=== PATIENT | male | born 1985 | race Caucasian/White ===

== ENCOUNTER 2017-05-28 09:30 | Emergency (ER) | payer MEDICAID, SELFPAY ==
[2017-05-28 09:31] VITALS: BP 157/103; PULSE 105; RESP 18; TEMP 36.1; O2SAT 100; BMI 25.9
--- NOTE | 2017-05-28 09:43 | ED.VISSUMM ---
- ER Visit Summary Date of Service: 05/28/17 Chief Complaint: Left elbow injury History of Present Illness: The patient is a 31 M [id number] presents left elbow injury at work. 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 Transient paresthesia. Pain worse with movement. Took Aleve prior to arrival. History of finger and toe fractures and no surgical intervention. He is on gabapentin for back pain. No back surgeries. Denies history of gastric ulcer or kidney injury. Physical Examination: General: Alert and oriented ?3, no acute distress HEENT: Normocephalic, atraumatic. Moist mucosa membranes Neck: supple, nontender. Cardiovascular: Regular rate and rhythm, no murmurs Respiratory: Normal breath sounds, symmetric, no distress Abdomen: Soft, nontender, nondistended Extremities: no edema, pulses intact ?4. Left upper extremity: No shoulder pain. Elbow with no deformities, tender to palpation at the olecranon. He will supinate and pronate without pain. Skin intact. Neurovascular intact distally. Neuro: no focal neurological deficits. Test Results: Left elbow x-ray: Soft tissue swelling, no fracture Emergency Department Course and Treatment: Ice was placed. X-ray negative for fracture. Sanjeev wrap provided. Rice therapy discussed. Continue with anti-inflammatory. He did not want to file Worker's Comp. due to being in a temp position. He will follow-up as an outpatient. Treatment Plan: Rice therapy Disposition: Discharge Impression: Left elbow contusion This note was generated with MediaScrape dictation software. It may contain incorrect words, spelling, and punctuation that were not noted in review of the chart prior to signing ED Disposition - Plan for ED Patient: Disposition: Home or Assisted Living Chief Complaint: Upper Extremity Injury Diagnosis: Contusion of left elbow, initial encounter Instructions: ED Contusion Upper Ext Referrals: Mansoor Lockwood [Primary Care Provider] - 5-7 Days
--- NOTE | 2017-05-28 09:58 | RAD_ITS ---
STUDY: X-RAY - LEFT ELBOW REASON FOR EXAM: Male, 31 years old. Pain following injury. TECHNIQUE: 3 view(s) of the elbow. COMPARISON: None. FINDINGS: Normal visualized humerus, radius and ulna. Normal radiocapitellar and ulnotrochlear articulations. Soft tissue swelling overlying the posterior aspect of the elbow. RAD/Elbow min 3 Views IMPRESSION: Soft tissue swelling overlying the posterior aspect of the elbow. Electronically Signed: Eddie Banks MD at 10:15 EST Tel [phone], Service support ,
[2017-05-28 10:37] VITALS: BP 137/88; PULSE 93; RESP 18; O2SAT 97
== END 2017-05-28 10:38 | disposition home or self-care (01) ==
PROVIDERS: Emergency Provider Emergency Medicine; Family Provider Physician Assistant; PCP Physician Assistant
DX: S50.02XA Contusion of left elbow, initial encounter (principal); W22.09XA Striking against other stationary object, initial encounter; Y93.9 Activity, unspecified; Y92.89 Other specified places as the place of occurrence of the external cause; Y99.0 Civilian activity done for income or pay; Z72.0 Tobacco use
CPT/HCPCS: 73080; 99282

== ENCOUNTER 2019-01-30 21:55 | Emergency (ER) | payer SELFPAY ==
[2019-01-30 21:56] VITALS: BP 133/101; PULSE 90; RESP 16; TEMP 36.7; O2SAT 98; BMI 25.7
[2019-01-30 22:30] VITALS: BP 144/89
--- NOTE | 2019-01-30 22:45 | RAD_ITS ---
STUDY: X-RAY - LEFT HAND, ATTENTION MIDDLE FINGER REASON FOR EXAM: Male, 33 years old. LACERATION FROM A KNIFE INJURY. TECHNIQUE: 3 view(s) of the finger were obtained. COMPARISON: None. FINDINGS: No visible fracture. No osseous destruction. Alignment anatomic. No significant degenerative changes. Soft tissues unremarkable. RAD/Finger(s) Min 2 Views IMPRESSION: No acute osseous abnormality. Electronically Signed: Robinson Dougherty, at 23:07 EDT Tel , Service support ,
--- NOTE | 2019-01-30 23:00 | ED.DCSUM_ITS ---
- ER Visit Summary Date of Service: 01/30/19 Chief Complaint: Laceration History of Present Illness: The patient is a 33 M who goes to [facility]. Reports just prior to coming emergency department he was cutting fudge with his pocket knife and cut his left middle finger. Reports he has a burning pain Zeta 10 hours and 4-10 currently. Is worsened by movement and relieved by rest. He denies any paresthesias distally. He is right-hand dominant. His tetanus is up-to-date. Physical Examination: Vitals: Stable. Afebrile. General: Well-nourished and well-developed. Head: Normocephalic atraumatic. Neck: Supple, no lymphadenopathy. No JVD. Nontender. Cardiovascular: Regular rate and rhythm. No murmurs. Respiratory: No respiratory distress. Clear to auscultation bilaterally. Abdominal: Soft, nontender, nondistended, normal bowel sounds. No guarding, rebound, or peritoneal signs. Back: Nontender. Extremities: Lateral side of the PIP joint of his left middle finger there is a 1 cm laceration. There is no active bleeding. He is resting intact distally Skin: Normal color, no rash. Neurologic: Alert and oriented ?3. Cranial nerves II through XII are intact. Normal strength and sensation. Psych: Normal affect. Test Results: Clinical Impression(s) from Imaging Studies Finger X-Ray 01/30/19 22:45 IMPRESSION: No acute osseous abnormality. Electronically Signed: Robinson Dougherty, at 23:07 EDT Tel , Service support , Emergency Department Course and Treatment: I discussed the patient treatment options. He has decided to let this heal by secondary intention. He refused pain medications. Patient had his wound cleansed and a dressing was placed. Treatment Plan: Patient be discharged instructions to follow-up with his primary care physician in 1 week if not improving. Return to the emergency department for any worsening symptoms. Disposition: To home in improved and stable condition. Impression: 1. Laceration left middle finger, 1 cm, not repaired. This note was generated with Atrecaation software. It may contain incorrect words, spelling, and punctuation that were not noted in review of the chart prior to signing ED Disposition - Plan for ED Patient: Disposition: Home or Assisted Living Instructions: LACERATION, Small/superficial, Not sutured Referrals: Mansoor Lockwood PA [Primary Care Provider] - 3-5 Days
[2019-01-30 23:18] VITALS: BP 144/89
== END 2019-01-30 23:18 | disposition home or self-care (01) ==
PROVIDERS: Emergency Provider Emergency Medicine; Family Provider Physician Assistant; PCP Physician Assistant
DX: S61.213A Laceration without foreign body of left middle finger without damage to nail, initial encounter (principal); W26.0XXA Contact with knife, initial encounter; Y93.9 Activity, unspecified; Y92.9 Unspecified place or not applicable; Y99.9 Unspecified external cause status; J45.909 Unspecified asthma, uncomplicated; Z72.0 Tobacco use
CPT/HCPCS: 73140; 99282

== ENCOUNTER → 2019-05-09 09:27 | Outpatient (CLI) | payer MEDICAID, SELFPAY ==
[2019-05-09 09:20] VITALS: BMI 25.7
--- NOTE | 2019-05-09 09:28 | RAD_ITS ---
STUDY: X-RAY - RIGHT KNEE REASON FOR EXAM: Male, 33 years old. KNEE PAIN, NO TRAUMA TECHNIQUE: 4 view(s) of the knee. COMPARISON: None. FINDINGS: Normal visualized distal femur. Normal visualized proximal tibia and fibula. Normal proximal tibiofibular articulation. Normal medial femorotibial compartment. Normal lateral femorotibial compartment. Normal patellofemoral articulation. The soft tissue structures are unremarkable. RAD/Knee 4 or More Views IMPRESSION: Normal x-ray examination of the knee. Electronically Signed: Jerrod Bautista MD at 15:11 EST Tel , Service support ,
--- NOTE | 2019-05-09 09:28 | RAD_ITS ---
STUDY: X-RAY - LEFT ELBOW REASON FOR EXAM: Male, 33 years old. ELBOW PAIN, NO TRAUMA TECHNIQUE: 3 view(s) of the elbow. COMPARISON: None. FINDINGS: Normal visualized humerus, radius and ulna. Normal radiocapitellar and ulnotrochlear articulations. The soft tissue structures are unremarkable. RAD/Elbow min 3 Views IMPRESSION: Normal x-ray examination of the elbow. Electronically Signed: Jerrod Bautista MD at 15:12 EST Tel , Service support ,
== END ==
PROVIDERS: PCP Physician Assistant; Referring Provider Orthopaedic Surgery; Visit Provider Orthopaedic Surgery
DX: M25.561 Pain in right knee (principal); M25.522 Pain in left elbow
CPT/HCPCS: 73080; 73564

== ENCOUNTER 2019-05-13 15:44 | Outpatient (RCR) | payer MEDICAID, SELFPAY ==
[2019-05-09 09:20] VITALS: BMI 25.7
--- NOTE | 2019-05-13 16:41 | HP.PTEVAL_ITS ---
Patient's Visit Information SEB BAIN is a 33 year old M referred to Physical Therapy by Channing Olmedo DO with a diagnosis of R knee pain, LBP. Date of Evaluation: 05/13/19 Physical Therapist: ZACH MonkT, OCS, CSCS - Visit Plan Frequency: 2x /Week Duration: 4-6 Weeks Plan: 2x/week for 4-6 weeks for aquatic therapy per order for: 1. quad, hip flexor adn HS stretching progressing to HEP. 2. hip and LE strengthening, postural focus. 3. LB ROM emphasizing ext and stretching progressing to I. After water therapy, exit strategy will be I in water or progress to land therapy for gym/HEP. - Subjective Findings: R knee hurts worse lately. Surgery 2 yrs ago for scope whcih helped for a while but pain started returning. ots of steps to do at aparmtment. Pain is anteriorly nearly daily. Worse with walking adn comfortable at rest. Steps are worse. L knee is fine. Sleep is interrupted due to throbbing pain at times. Not employed. Spends day lying around and going to doctors appointments. Basic ADLs are getting done, it just hurts. Back pain all the time 4/10 in Middle LB. Worse with bending forward. activities OK, worse in standing. - Pain R anterior knee Pain Intensity (Out of 10): 4 Pain Intensity Range: 0, 8 Comment: carrying gorceries - Objective R antalgia with gait but I. Trasnfers I. Posture is sacral sitting and stiffness present in lower lumbar and thpracic area into flexion. PA tenderness in upper lumbar spine. Tenderness to touch in medial knee pes area. HS -50 90/90 test with obvious tightness in hip flexor also as opposite knee rises off table. quads mod tight. L/S AROM multi segmental is mod limited in ext adn min in flexion. normal SB. Knee aROM B WFL without pain. Hipsarevery tight but ROM is OK except hip ext limited to neutral, ext rotation to 45, IR to 10 and flexion to 100 B. Ankle AROM WFL and strength ankles 4- and knees 4- but painful R knee ext, hip strength 4- abd and ext adn 4 flexion B. knee scour, vlagus and varus, anterior drawer adn post sag all negative B today. - slump and SLR test. Pt is very tall. B pes planus evident and may need addressed after pool therapy but already wears doctor joe - Goals Goal 1:: Short term goals: Pain in LB and knee reduced by 50% to 2/10 at worst and manageable. Goal Time Frame: 4-6 Weeks Goal 2:: LEFS improved by 10% Goal Time Frame: 4-6 Weeks Goal 3:: senior living goals: I approp HEP to minimize futre probems with knee pain and back Goal Time Frame: 4-6 Weeks Goal 4:: Sleep without waking at night due to knee pain. Goal Time Frame: 4-6 Weeks Goal 5:: Walk community distances without increased knee pain Goal Time Frame: 4-6 Weeks - Rehabilitation Potential Physical Therapy Diagnosis: Knee adn LBP, degenrative adn poorly managed. Rehabilitation Potential: Fair - Anticipated Interventions Patient/Client Instruction: Educate patient on: Condition, Plan of Care For the Purpose of:: To decrease pain, To increase ROM, To improve muscle performance and motor function, To increase tolerance to activity/condition/position, To improve ability of physical actions for home/community/work/leisure, To improve gait and locomotor functions Therapeutic Exercise to Include: Strength training, Postural training, Flexibilty training, Gait and locomotor training, In an aquatic setting, Passive ROM, Active ROM For the Purpose of:: To decrease pain, To increase ROM, To improve muscle performance and motor function, To increase tolerance to activity/condition/position Thank you for the opportunity to evaluate your patient. For Medicare and Medicare HMO plans, please review the plan of care and approve it. It will need to be FAXED BACK to us at [phone] for Medicare purposes. For Medicare only, by signing this I certify the plan of care. Please let me know if there are questions or concerns regarding this plan of care. Physician Signature: Date:
--- NOTE | 2019-06-23 14:39 | HP.PTDCNRP_ITS ---
HP - Discharge Summary (1) - Patient Information SEB BAIN was seen in my office for initial evaluation on 05/13/19. The following Plan of Care was established for this patient: Initial Frequency: 2x /Week Initial Duration: 4-6 Weeks - Anticipated Interventions Patient/Client Instruction: Educate patient on: Condition, Plan of Care For the Purpose of:: To decrease pain, To increase ROM, To improve muscle perfo rmance and motor function, To increase tolerance to activity/condition/position, To improve ability of physical actions for home/community/work/leisure, To improve gait and locomotor functions Therapeutic Exercise to Include: Strength training, Postural training, Flexibilty training, Gait and locomotor training, In an aquatic setting, Passive ROM, Active ROM For the Purpose of:: To decrease pain, To increase ROM, To improve muscle performance and motor function, To increase tolerance to activity/condition/position This patient was last seen in our office 05/13/19. Pertinent comments regarding their Physical therapy will appear below: Pt seen for evaluation and POC established. PT did not show up any of his scheduled appointments. At this point I will discontinue due to nonattendance. At this point I will be discontinuing this patient from physical therapy. I would be happy to see this patient again in the future if found appropriate by the physician. Thank you! Paulino Stallworth, DPT, OCS, CSCS
== END 2019-05-13 19:00 | disposition home or self-care (01) ==
LOC: PT 15:44
PROVIDERS: PCP Student in an Organized Health Care Education/Training Program; Referring Provider Student in an Organized Health Care Education/Training Program; Visit Provider Student in an Organized Health Care Education/Training Program
DX: M54.5 Low back pain (principal); M25.561 Pain in right knee
CPT/HCPCS: 97162

== ENCOUNTER → 2019-06-12 15:21 | Outpatient (CLI) | payer MEDICAID, SELFPAY ==
[2019-06-12 14:55] VITALS: BMI 25.7
[2019-06-12 16:07] LABS: Absolute Lymphocyte Count 1.83 X10^3/uL (0.83-4.51); Absolute Neutrophil Count 3.8 X10^3/uL (2.0-7.7); Basophil# 0.03 X10^3/uL; Basophil% 0.5 % (0-1); Eosinophils% 3.1 % (0-5); Hematocrit 50.6 % (40-54); Hemoglobin 17.3 g/dL (13.0-16.5); Lymphocyte # 1.83 X10^3/ul (4.0); Lymphocyte % 28.8 % (19-41); Mean Corp Hgb Conc 34.2 g/dL (32-36); Mean Corpuscular Volume 87.7 fL (80-94); Mean Platelet Vol. 8.7 fl (6.2-12.0); Monocyte# 0.45 X10^3/uL; Monocyte% 7.1 % (0-10); NRBC Flagged by Analyzer 0 % (0-5); Neutrophil # 3.83 X10^3/uL (2.7-7.7); Neutrophil % 60.2 % (47-70); Platelet Count 223 K/mm3 (150-450); RBC Distribution Width CV 12.9 % (11.6-14.6); RBC Distribution Width SD 41.3 fl (35.1-43.9); Red Blood Count 5.77 M/mm3 (4.6-6.2); White Blood Count 6.4 K/mm3 (4.4-11.0)
[2019-06-12 19:26] LABS: BUN 11 mg/dL (7-18); Creatinine, Serum 0.95 mg/dL (0.70-1.30); Glucose 93 mg/dL (74-106)
[2019-06-12 19:27] LABS: ALB/GLOB Ratio 1.2 RATIO (0.9-2.4); AST(SGOT) 18 U/L (15-37); Alanine Aminotransfer ALT/SGPT 42 U/L (16-61); Albumin, Serum 4.5 g/dL (3.2-5.0); Alkaline Phosphatase 132 U/L (45-117); Anion Gap 5 (5-15); Calcium,Total 8.8 mg/dL (8.5-10.1); Chloride 107 mmol/L (98-107); Free T3 3.2 pg/mL (2.18-3.98); Globulin 3.7 g/dL (2.2-4.2); Protein, Total 8.2 g/dL (6.4-8.2); Sodium Level 139 mmol/L (136-145); Thyroid Stim Hormone (TSH) 1.42 uIU/mL (0.358-3.74)
[2019-06-12 19:28] LABS: PSA,Total - Annual Screen 0.63 ng/mL (0.00-4.00); T4 Free Direct 1.19 ng/dL (0.76-1.46)
[2019-06-12 19:43] LABS: BUN/Creat Ratio 11.5 RATIO (10-20); EST Glomerular Filtration Rate 97 mL/min (>60); Est Glom Filt Rate - Afr Amer 118 mL/min (>60); Follicle Stimulating Hormone 38.5 mIU/mL; Luteinizing Hormone 20.6 mIU/mL; Prolactin 3.9 ng/mL
[2019-06-16 16:08] LABS: Testosterone, % Free 1.99 % (1.50-4.20); Testosterone, Free 4.38 ng/dL (5.00-21.00)
[2019-06-16 18:06] LABS: Adrenocorticotropic Hormone 29.6 pg/mL (7.2-63.3); Insulin Like Growth Factor 227 ng/mL (88-246); Testosterone, Total 220 ng/dL (264-916)
== END ==
PROVIDERS: PCP Student in an Organized Health Care Education/Training Program; Referring Provider Internal Medicine Endocrinology, Diabetes & Metabolism; Visit Provider Internal Medicine Endocrinology, Diabetes & Metabolism
DX: E23.0 Hypopituitarism (principal); E23.7 Disorder of pituitary gland, unspecified; Q98.4 Klinefelter syndrome, unspecified
CPT/HCPCS: 36415; 80053; 82024; 82533; 83001; 83002; 84146; 84153; 84305; 84402; 84403; 84439; 84443; 84481; 85025; G0103

== ENCOUNTER → 2019-06-23 11:28 | Outpatient (CLI) | payer MEDICAID, SELFPAY ==
[2019-06-19 14:05] VITALS: BMI 26.4
--- NOTE | 2019-06-23 11:28 | US_ITS ---
STUDY: RENAL ULTRASOUND - COMPLETE REASON FOR EXAM: Male, 33 years old. EVALUATE FOR POSSIBLE RENAL MASS/CYST TECHNIQUE: Ultrasound evaluation of the kidneys was performed with real-time and static sullivan-scale imaging. COMPARISON: November 01, 2012. FINDINGS: Right kidney: Measures 11.3 cm. Normal contour. Renal cortical thickness appears normal. No cysts. No masses, stones, or hydronephrosis identified. Left kidney: Measures 12.4 cm. Normal contour. Renal cortical thickness appears normal. No cysts. No masses, stones, or hydronephrosis identified. Bladder: Decompressed and not evaluated US/Kidney and Bladder IMPRESSION: Renal ultrasound is within normal limits. No evidence for cyst or mass demonstrated. Bladder not evaluated. Electronically Signed: Carlos Jarvis, at 12:28 EDT Tel , Service support ,
--- NOTE | 2019-06-23 11:28 | US_ITS ---
STUDY: ABDOMINAL ULTRASOUND - LEFT UPPER QUADRANT REASON FOR EXAM: Male, 33 years old. CHECK SIZE OF SPLEEN TECHNIQUE: Transabdominal ultrasound was performed with real-time and static beach scale imaging. TECHNICAL QUALITY: Adequate. COMPARISON: CT scan November 01, 2018 FINDINGS: Spleen: Normal size of the spleen. The spleen measures 12.9 x 9.9 x 4.5 cm. On prior study November 01, 2018 and measured approximately 14.7 x 5.7 x 12.5 cm Left Kidney: Normal size of the left kidney. The left kidney measures 8.4 x 3.7 cm. Normal renal cortex. The left cortex measures 1.3 cm. There is no demonstrated renal mass or cyst. There is no left hydronephrosis. US/Spleen IMPRESSION: The spleen measures 12.9 x 9.9 x 4.5 cm. This is considered mildly enlarged. Allowing for differences in measuring technique between the CT November 01, 2012 and today''s study in May have reduced in size. Electronically Signed: Anastasia Ferrera MD at 13:54 EDT Tel , Service support ,
== END ==
PROVIDERS: PCP Student in an Organized Health Care Education/Training Program; Referring Provider Internal Medicine Hematology & Oncology; Visit Provider Internal Medicine Hematology & Oncology
DX: D75.1 Secondary polycythemia (principal); Q98.4 Klinefelter syndrome, unspecified
CPT/HCPCS: 76705; 76770

== ENCOUNTER → 2019-08-25 13:47 | Outpatient (CLI) | payer MEDICAID, SELFPAY ==
[2019-06-25 14:52] VITALS: BMI 25.7
[2019-08-25 14:33] LABS: Hematocrit 46.4 % (40-54); Hemoglobin 15.4 g/dL (13.0-16.5)
== END ==
PROVIDERS: Referring Provider Internal Medicine Endocrinology, Diabetes & Metabolism; Visit Provider Internal Medicine Endocrinology, Diabetes & Metabolism
DX: D75.1 Secondary polycythemia (principal)
CPT/HCPCS: 36415; 85014; 85018

== ENCOUNTER → 2020-08-26 14:49 | Outpatient (CLI) | payer MEDICAID, SELFPAY ==
[2020-08-26 14:36] VITALS: BMI 25.7
[2020-08-26 16:49] LABS: Absolute Neutrophil Count 4.4 X10^3/uL (2.0-7.7); Basophil# 0.02 X10^3/uL; Basophil% 0.3 % (0-1); Eosinophil# 0.17 X10^3/uL; Eosinophils% 2.5 % (0-5); Hematocrit 42.7 % (40-54); Lymphocyte % 27.7 % (19-41); Mean Corp Hgb Conc 32.8 g/dL (32-36); Mean Corpuscular Hgb 29.3 pg (27.0-32.0); Mean Corpuscular Volume 89.3 fL (80-94); Mean Platelet Vol. 9.2 fl (6.2-12.0); Monocyte# 0.37 X10^3/uL; Monocyte% 5.4 % (0-10); NRBC Flagged by Analyzer 0 % (0-5); Neutrophil # 4.37 X10^3/uL (2.7-7.7); Neutrophil % 63.8 % (47-70); Platelet Count 235 K/mm3 (150-450); RBC Distribution Width CV 13.2 % (11.6-14.6); Red Blood Count 4.78 M/mm3 (4.6-6.2); White Blood Count 6.9 K/mm3 (4.4-11.0)
[2020-08-26 17:08] LABS: ALB/GLOB Ratio 1.4 RATIO (0.9-2.4); AST(SGOT) 24 U/L (15-37); Alanine Aminotransfer ALT/SGPT 33 U/L (16-61); Albumin, Serum 4.3 g/dL (3.2-5.0); Alkaline Phosphatase 105 U/L (45-117); Anion Gap 8 (5-15); BUN 17 mg/dL (7-18); BUN/Creat Ratio 16.8 RATIO (10-20); Calcium,Total 8.9 mg/dL (8.5-10.1); Chloride 104 mmol/L (98-107); Cholesterol 226 mg/dL (200); Creatinine, Serum 1.01 mg/dL (0.70-1.30); EST Glomerular Filtration Rate 90 mL/min (>60); Est Glom Filt Rate - Afr Amer 109 mL/min (>60); Globulin 3.1 g/dL (2.2-4.2); Glucose 114 mg/dL (74-106); High Density Lipoprotein 47 mg/dL; Potassium 3.6 mmol/L (3.5-5.1); Protein, Total 7.4 g/dL (6.4-8.2); Sodium Level 140 mmol/L (136-145); T4 Free Direct 0.98 ng/dL (0.76-1.46); Thyroid Stim Hormone (TSH) 0.69 uIU/mL (0.358-3.74); Triglycerides 156 mg/dL; Very Low Density Lipoprotein 31 mg/dL (5-40)
[2020-08-31 12:08] LABS: Testosterone, Free 2.89 ng/dL (5.00-21.00)
[2020-08-31 13:14] LABS: Testosterone, % Free 2.22 % (1.50-4.20); Testosterone, Total 130 ng/dL (264-916)
== END ==
PROVIDERS: Referring Provider Internal Medicine Endocrinology, Diabetes & Metabolism; Visit Provider Internal Medicine Endocrinology, Diabetes & Metabolism
DX: Q98.4 Klinefelter syndrome, unspecified (principal); D75.1 Secondary polycythemia
CPT/HCPCS: 36415; 80053; 80061; 84402; 84403; 84439; 84443; 85025

== ENCOUNTER 2021-05-03 16:05 | Outpatient (CLI) | payer MEDICAID, SELFPAY ==
[2021-05-03 16:47] LABS: Absolute Lymphocyte Count 1.59 X10^3/uL (0.83-4.51); Absolute Neutrophil Count 3.9 X10^3/uL (2.0-7.7); Basophil# 0.02 X10^3/uL; Basophil% 0.3 % (0-1); Eosinophil# 0.19 X10^3/uL; Eosinophils% 3.1 % (0-5); Hematocrit 45.6 % (40-54); Lymphocyte # 1.59 X10^3/ul (0.83-4.51); Lymphocyte % 26.2 % (19-41); Mean Corp Hgb Conc 32.9 g/dL (32-36); Mean Corpuscular Hgb 29.8 pg (27.0-32.0); Mean Corpuscular Volume 90.5 fL (80-94); Mean Platelet Vol. 9.1 fl (6.2-12.0); Monocyte% 6.6 % (0-10); NRBC Flagged by Analyzer 0 % (0-5); Neutrophil # 3.86 X10^3/uL (2.7-7.7); Neutrophil % 63.5 % (47-70); Platelet Count 240 K/mm3 (150-450); RBC Distribution Width CV 13.7 % (11.6-14.6); RBC Distribution Width SD 45.3 fl (35.1-43.9); Red Blood Count 5.04 M/mm3 (4.6-6.2); White Blood Count 6.1 K/mm3 (4.4-11.0)
[2021-05-12 11:08] LABS: Testosterone, Free 5.13 ng/dL (5.00-21.00)
[2021-05-12 14:36] LABS: Testosterone, % Free 2.24 % (1.50-4.20); Testosterone, Total 229 ng/dL (264-916)
== END 2021-05-03 23:59 | disposition short-term general hospital (02) ==
LOC: BIMLAB 16:06
PROVIDERS: Referring Provider Internal Medicine Endocrinology, Diabetes & Metabolism; Visit Provider Internal Medicine Endocrinology, Diabetes & Metabolism
DX: D75.1 Secondary polycythemia (principal); E29.1 Testicular hypofunction
CPT/HCPCS: 36415; 84402; 84403; 85025

== ENCOUNTER 2021-07-26 06:28 | Outpatient (CLI) | payer MEDICAID, SELFPAY ==
--- NOTE | 2021-07-26 06:28 | MRI_ITS ---
STUDY: MRI RIGHT KNEE REASON FOR EXAM: Anterior right knee pain for 6 months, no specific injury, prior surgery. TECHNIQUE: Standardized fat and water weighted pulse sequences were obtained in all 3 orthogonal planes. COMPARISON: Radiographs 05/09/2019. FINDINGS: Normal medial meniscus. Normal hyaline cartilage of the medial femorotibial compartment. There is very mild subchondral bone edema of the medial tibial plateau (T2 coronal images 15, 16), a stress phenomenon. Normal medial collateral ligamentous complex (MCL). Normal distal semimembranosus, gracilis and semitendinosus tendons. Normal lateral meniscus. Normal hyaline cartilage of the lateral femorotibial compartment. Normal lateral femoral condyle and tibial plateau. Normal proximal tibiofibular articulation. Normal lateral collateral (fibular) ligament. Normal popliteus tendon. Normal biceps femoris tendon. Normal anterior cruciate ligament (ACL). Normal posterior cruciate ligament (PCL). Normal congruent patellofemoral articulation. There is an osteochondral lesion of the medial patellar facet (proton-density sagittal images 25, 26) measuring approximately 0.8 cm in transverse and length dimensions with overlying chondral tear with delamination (T2 sagittal image 15; T2 axial images 7, 8) and mild bone edema of the patella. Normal medial and lateral patellar retinaculum. Normal visualized quadriceps tendon. Normal patellar tendon. Normal Hoffa''s fat pad. There is a very small joint effusion. The soft tissues are unremarkable. The otherwise visualized osseous structures are unremarkable. MRI/Lower Ext Joint Only (Routine) IMPRESSION: Osteochondral lesion of the medial patellar facet with overlying delaminating chondral tear. Very mild subchondral bone edema of the medial tibial plateau, a stress phenomenon. Very small joint effusion. Electronically Signed: Sebastian Castano MD at 8:46 EDT ,
== END 2021-07-26 23:59 | disposition home or self-care (01) ==
LOC: MRI 06:28
DX: M23.91 Unspecified internal derangement of right knee (principal); Z98.890 Other specified postprocedural states
CPT/HCPCS: 73721

== ENCOUNTER 2021-08-09 20:02 | Emergency (ER) | payer MEDICAID, SELFPAY ==
[2021-08-09 20:03] VITALS: BP 130/76; PULSE 68; RESP 15; TEMP 36.1; O2SAT 98; BMI 25.9
--- NOTE | 2021-08-09 20:35 | ED.VIS.GI ---
HPI HPI - GI History of Present Illness Chief Complaint: Other, Pain/Inj Detail of Chief Complaint: Hemorrhoid. Informant: patient Abdominal Pain/Flank Pain Onset: Days Context: Gradual Onset Timing: Continuous Quality: Sharp Current Severity: Mild Maximum Severity: Mild Nausea/Vomiting/Emesis GI Symptom: Negative for Nausea and Vomiting Diarrhea/Melena/Hematochezia GI Symptom: Negative for Diarrhea, Melena and Hematochezia Associated Symptoms Associated Symptoms: Negative for Dysuria, Frequency and Hematuria Narrative Narrative: 36-year-old male states he has had a hemorrhoid for a week. He has been using hemorrhoid cream for 3 days states it has not improved. He denies any bleeding. Denies any other complaints. Prior similar symptoms: Yes Recent Illness/Hospitalization: No PFSH PFSH Medical History Klinefelter syndrome Male hypogonadism Yeast infection of the skin Home Medications cyclobenzaprine 5 mg tablet 5 mg PO DAILY 06/12/19 [History Last Taken Unknown] fluticasone propionate 50 mcg/actuation nasal spray,suspension 2 spray INTRANASAL DAILY #36.4 ml 12/09/19 [Rx Last Taken Unknown] syringe with needle, safety 3 mL 22 gauge x 1 04/17 #10 ea 01/31/21 [Rx Last Taken Unknown] nystatin 100,000 unit/gram topical powder 1 applic TOPICAL DAILY #30 g 05/03/21 [Rx Last Taken Unknown] testosterone cypionate 200 mg/mL intramuscular oil 200 mg IM Q3W #2 ml 05/12/21 [Rx Last Taken Unknown] Allergy/AdvReac Type Severity Reaction Status Date / Time shellfish derived Allergy Severe Unknown Verified 08/09/21 20:07 ciprofloxacin [From Cipro] AdvReac Severe Rash Verified 08/09/21 20:07 ciprofloxacin HCl AdvReac Severe Rash Verified 08/09/21 20:07 [From Cipro] sulfamethoxazole AdvReac Intermediate Itching Verified 08/09/21 20:07 [From Bactrim] trimethoprim [From Bactrim] AdvReac Intermediate Itching Verified 08/09/21 20:07 Family History Other No pertinent family history Surgical History History of right knee surgery Social History Smoking Status: Current every day smoker alcohol intake: never ROS ROS ED ROS Narrative Hemorrhoid pain. Review of Systems ROS Unobtainable: Denies due to encephalopathy Constitutional Constitutional ED: Denies fever(s) ENT ENT ED: Denies ear pain Cardiovascular Cardiovascular: Denies chest pain Respiratory/Chest Respiratory/Chest: Denies dyspnea Gastrointestinal Gastrointestinal: Denies abdominal pain, constipation, melena, nausea or vomiting Genitourinary Genitourinary ED: Denies dysuria Musculoskeletal Musculoskeletal: Denies myalgias Integumentary Denies rash Neurologic Neurologic: Denies headache(s) Psychiatric Psychiatric: Denies depression Endocrine Endocrinology: Denies polyuria Hematologic/Lymphatic Hematologic/Lymphatic: Denies easy bruising Allergic/Immunologic Allergic/Immunologic ED: Denies urticaria EXAM Physical Exam Narrative Exam Narrative: 35-year-old male. Vital signs stable afebrile. Patient 6 foot 9. Exam unremarkable except at about 12:00 he has an external hemorrhoid. Mildly tender. Not thrombosed. No bleeding. Otherwise exam unremarkable. Const Vital Signs: 08/09/21 20:03 Temperature 96.9 F L Temperature Source Temporal Pulse Rate 68 Respiratory Rate 15 Blood Pressure 130/76 H Blood Pressure Mean 94 Pulse Ox 98 Oxygen Delivery Method Room Air Positive well nourished and well developed; Negative for obese, cachectic, contractures or unkempt General Appearance ED: well developed and NAD; Negative for unkempt, cachectic, contractures or pallor Nutritional Appearance: Negative for cachectic or obese HEENT Reports moist mucous membranes normocephalic and atraumatic; Negative for trauma or tenderness Eyes PERRL and EOMs intact bilaterally General Eye ED: Negative for pale conjunctiva or scleral icterus Neck no lymphadenopathy, supple and no JVD General: Negative for tenderness Resp normal respiratory effort and clear to auscultation bilaterally Auscultation: Negative for rales, rhonchi or wheezes Cardio regular rate, regular rhythm, S1 normal heart sound, S2 normal heart sound and no murmurs GI non-tender, non-distended and no masses GI Narrative: External hemorrhoid at about midnight. Not thrombosed. No bleeding. Auscultation: normoactive bowel sounds Palpation: soft; Negative for tender, guarding or rigid Back/Spine no CVA tenderness Extremity full ROM General Extremety ED: Negative for edema or tenderness General Extremity: Negative for edema Neuro Sensorium / Orientation: alert, oriented to person, oriented to place and oriented to time Motor Exam: strength 5/5 throughout Psych mental status grossly normal and thought process normal Appearance: Negative for unkempt Mood & Affect: Negative for depressed or tearful Skin no wounds General Skin Exam: Negative for jaundice or pallor Lesions: no lesions Rashes: no rashes MDM MDM MDM Narrative Medical decision making narrative: 35-year-old male with an external hemorrhoid. Is not thrombosed. Hemorrhoid cream. Warm soaks. Follow-up with surgery if not improving. Discharge Plan Triage Chief Complaint: Other, Pain/Inj ED Provider: Ulysses Blue Dx/Rx/DC Orders Clinical Impression: External hemorrhoid Instructions: ED Hemorrhoids Prescriptions: No Action cyclobenzaprine 5 mg tablet 5 mg PO DAILY RF: 0 fluticasone propionate [Flonase Allergy Relief] 50 mcg/actuation spray,suspension 2 spray INTRANASAL DAILY Qty: 36.4 RF: 3 nystatin 100,000 unit/gram powder 1 applic topical DAILY Qty: 30 RF: 1 (DME) Easy Touch SheathLock Syrg-Ndl 3 mL 22 gauge x 1 1/2 syringe See Rx Instructions .ROUTE .MEDSUPPLY Qty: 10 RF: 1 testosterone cypionate [Depo-Testosterone] 200 mg/mL oil 200 mg IM Q3W Qty: 2 RF: 5 Primary Care Provider: Care Physician,No Primary Referrals: Jose Laws MD [STAFF PHYSICIAN] - 10-14 Days if not better Care Physician,No Primary [Primary Care Provider] - Activity Restrictions/Additional Instructions: Continue hemorrhoid cream such as Preparation H 2-3 times a day for the next 2 weeks. If not improving follow-up with general surgery to consider having it surgically removed. Also warm baths 2 times a day 20 to 30 minutes each time. Motrin and/or Tylenol for pain. Disposition Disposition: Home, Self Care
== END 2021-08-09 20:51 | disposition home or self-care (01) ==
PROVIDERS: Emergency Provider Emergency Medicine; Visit Provider Emergency Medicine
DX: K64.4 Residual hemorrhoidal skin tags (principal); F17.200 Nicotine dependence, unspecified, uncomplicated; Z79.899 Other long term (current) drug therapy
CPT/HCPCS: 99282

== ENCOUNTER → 2021-08-13 | Outpatient (CLI) | payer MEDICAID, SELFPAY ==
--- NOTE | 2021-08-13 07:30 | MRI_ITS ---
STUDY: MRI LUMBAR SPINE WITHOUT CONTRAST REASON FOR EXAM: Male, 36 years old. Lower back pain for few years. TECHNIQUE: Standardized fat and water weighted pulse sequences were obtained in the sagittal and axial planes. COMPARISON: Lumbar spine radiographs for 08/03/2021. CT abdomen and pelvis without contrast 11/01/2012. FINDINGS: T12-L1: (Sagittal only). Normal endplates. Normal disc height, hydration and morphology. No ventral extradural defect. Normal central canal and bilateral intervertebral neural foramina. Normal lumbar lordosis. There is no substantial scoliosis. Normal conus medullaris that terminates at the T12-L1 disc space level. L1-2: Normal endplates. Normal disc height, hydration and morphology. Normal bilateral facet joints. Normal central canal and bilateral lateral recesses. Normal bilateral intervertebral neural foramina. L2-3: Normal endplates. Normal disc height, hydration and morphology. Normal bilateral facet joints. Normal central canal and bilateral lateral recesses. Normal bilateral intervertebral neural foramina. L3-4: Normal endplates. Normal disc height, hydration and morphology. Normal bilateral facet joints. Normal central canal and bilateral lateral recesses. Normal bilateral intervertebral neural foramina. L4-5: Normal endplates. Mild disc space height narrowing is unchanged. Small linear T2 FLAIR hyperintensity underneath the posterior annulus is small annular fissure. Normal facet joints. Normal central canal and bilateral lateral recesses. Normal bilateral intervertebral neural foramina. L5-S1: Normal endplates. Minimal disc space height narrowing. Small round T2 hyperintensity underneath the posterior annulus may represent tiny annular fissure. No ventral extradural defect due to presence of prominent ventral epidural fat. Normal facet joints. Normal central canal and bilateral lateral recesses. Normal bilateral intervertebral neural foramina. Normal visualized sacral ala. Normal visualized paraspinous soft tissue structures. MRI/Spine Lumbar (Routine) IMPRESSION: 1. No MRI evidence of lumbar extruded disc fragment, spinal stenosis or nerve root displacement. 2. Minimal L4-L5 disc space height narrowing is unchanged but there is a small linear T2 STIR hyperintensity underneath the posterior annulus suggestive of small annular fissure. 3. Small round T2 STIR hyperintensity focus underneath the L5-S1 posterior annulus may represent a tiny annular fissure. Electronically Signed: Chaparro Hou MD at 18:06 EDT ,
== END | disposition home or self-care (01) ==
LOC: MRI 07:18
PROVIDERS: Visit Provider Orthopaedic Surgery
DX: M47.816 Spondylosis without myelopathy or radiculopathy, lumbar region (principal)
CPT/HCPCS: 72148

== ENCOUNTER → 2021-10-10 | Outpatient (CLI) | payer MEDICAID, SELFPAY ==
--- NOTE | 2021-10-10 15:01 | VDLE_ITS ---
Reason For Study: Calf pain RIGHT GSV is normal. CFV is compressible, spontaneous, phasic, competent and demonstrates normal augmentation. FV is compressible, spontaneous, phasic, competent and demonstrates normal augmentation. POP V is compressible, spontaneous, phasic, competent and demonstrates normal augmentation. T/P Trunk is compressible. PTV is compressible. RT PerV is compressible. Procedure This is a venous duplex using B-mode, color flow and spectral Doppler. Exam performed in department. A preliminary report was called and/or faxed to [facility]. VL/Venous Duplex US, Unilateral Interpretation Summary There is no evidence of right lower extremity deep vein thrombosis. Right great saphenous vein appears patent and compressible segmentally. Ordering Physician: Margarita Ferraro Performed By: Nisha Valiente RVT
== END | disposition home or self-care (01) ==
LOC: CVS 15:00
DX: M79.661 Pain in right lower leg (principal)
CPT/HCPCS: 93971

== ENCOUNTER → 2022-04-04 | Outpatient (CLI) | payer MEDICAID, SELFPAY ==
--- NOTE | 2022-04-04 15:20 | RAD_ITS ---
STUDY: X-RAY - LUMBAR SPINE REASON FOR EXAM: Male, 36 years old. LUMBAR STRAIN TECHNIQUE: XR Spine Lumbar Min 4 Views COMPARISON: 08.03.21 FINDINGS: Normal lumbar lordosis. There is no substantial scoliosis. There is a normal alignment of the vertebrae. Normal vertebral bodies and endplates. Normal disc space heights. The soft tissue structures are unremarkable. RAD/L/S Spine Min 4 Views IMPRESSION: There are no acute findings. Electronically Signed: Chago Hsu MD at 20:35 EST ,
== END | disposition home or self-care (01) ==
LOC: RAD 15:14
PROVIDERS: Visit Provider Chiropractor
DX: S39.012A Strain of muscle, fascia and tendon of lower back, initial encounter (principal); X58.XXXA Exposure to other specified factors, initial encounter
CPT/HCPCS: 72110

== ENCOUNTER 2022-08-25 11:09 | Day surgery (SDC) | payer MEDICAID, SELFPAY ==
--- NOTE | 2022-08-07 15:13 | RAD_ITS ---
STUDY: X-RAY CHEST REASON FOR EXAM: Male, 37 years old. PRE-OP TECHNIQUE: PA and lateral views of the chest. COMPARISON: None. FINDINGS: The lungs are clear and expanded. There is no demonstrated pleural abnormality. Normal size heart. Normal mediastinum and warren. Normal visualized pulmonary arteries. Normal visualized aortic arch and descending thoracic aorta. Normal visualized thoracic spine. Normal visualized ribs, clavicles, and shoulders. There is no demonstrated abnormality of the visualized soft tissue structures of the upper abdomen. RAD/Chest PA and Lateral IMPRESSION: Normal x-ray examination of the chest. Electronically Signed: Eddie Banks MD at 15:41 EDT ,
[2022-08-07 17:58] LABS: Absolute Lymphocyte Count 1.99 X10^3/uL (0.83-4.51); Absolute Neutrophil Count 5.6 X10^3/uL (2.0-7.7); Basophil# 0.04 X10^3/uL; Basophil% 0.5 % (0-1); Eosinophil# 0.33 X10^3/uL; Eosinophils% 3.9 % (0-5); Hematocrit 46.5 % (40-54); Hemoglobin 15.5 g/dL (13.0-16.5); Lymphocyte # 1.99 X10^3/ul (0.83-4.51); Lymphocyte % 23.5 % (19-41); Mean Corp Hgb Conc 33.3 g/dL (32-36); Mean Corpuscular Hgb 30.4 pg (27.0-32.0); Mean Corpuscular Volume 91.2 fL (80-94); Monocyte# 0.46 X10^3/uL; Monocyte% 5.4 % (0-10); NRBC Flagged by Analyzer 0 % (0-5); Neutrophil # 5.62 X10^3/uL (2.7-7.7); Neutrophil % 66.5 % (47-70); Platelet Count 235 K/mm3 (150-450); RBC Distribution Width CV 13.2 % (11.6-14.6); RBC Distribution Width SD 44.2 fl (35.1-43.9); White Blood Count 8.5 K/mm3 (4.4-11.0)
[2022-08-07 18:55] LABS: ALB/GLOB Ratio 1.3 RATIO (0.9-2.4); AST(SGOT) 25 U/L (15-37); Alanine Aminotransfer ALT/SGPT 30 U/L (16-61); Albumin, Serum 4.3 g/dL (3.2-5.0); Alkaline Phosphatase 87 U/L (45-117); Anion Gap 6 (5-15); BUN 9 mg/dL (7-18); BUN/Creat Ratio 7.1 RATIO (10-20); Calcium,Total 9.3 mg/dL (8.5-10.1); Chloride 104 mmol/L (98-107); Creatinine, Serum 1.27 mg/dL (0.70-1.30); EST Glomerular Filtration Rate 69 mL/min (>60); Est Glom Filt Rate - Afr Amer 83 mL/min (>60); Globulin 3.2 g/dL (2.2-4.2); Glucose 86 mg/dL (74-106); Potassium 4.3 mmol/L (3.5-5.1); Protein, Total 7.5 g/dL (6.4-8.2); Sodium Level 136 mmol/L (136-145)
--- NOTE | 2022-08-25 | MASS_PTH ---
PATIENT: SEB BAIN LOC: [facility] [place][id number] AGE/SX: 37/M ROOM: RE08/25/[address]: Dr. Jose Rhodes DPM : 1985 BED: DIS: 08/25/2022 SPEC #: [id number] RECD: 08/25/22 16:56 STATUS: OLEGARIO REQ #: [id number] MATHEW: 08/25/22 00:[address]: Jose Rhodes DEPT: SURGICAL PATHOLOGY RECD BY: Ace Phoenix ENTERED: 08/28/22 10:05 SP TYPE: Mass OTHR DR: MD Dr. Shireen Arboleda, Tissues: Foot, NOS Procedures: Surgery Specimen Level IV HEADER OPERATION: Excision right foot soft tissue mass PRE-OP DIAGNOSIS: Right foot soft tissue mass TISSUE SUBMITTED: Right foot soft tissue mass MICROSCOPIC DIAGNOSIS Soft tissue mass of right foot, biopsy: Consistent with fibroma. Hyperkeratosis and mild chronic dermal inflammation. AM:vinny 08/29/2022 MICROSCOPIC DESCRIPTION Slides are reviewed. GROSS DESCRIPTION Received in fixative is one container labeled with the patient's name and designated right foot soft tissue mass. The specimen consists of a piece of guan-white skin ellipse measuring 1.5 x 0.9 cm and up to 0.3 cm in thickness. There is a guan nodule on the surface measuring 0.7 x 0.6 cm. Also present in the container are detached pieces of skin and soft tissue measuring in aggregate 1.5 x 0.3 x 0.3 cm. The entire specimen is submitted in one cassette. / SJ:vinny 08/28/2022 TC:1 CPT: 53716
[2022-08-25 11:31] VITALS: BP 116/71; PULSE 59; RESP 16; TEMP 36.8; O2SAT 98; BMI 21.6
[2022-08-25] MEDS: Lactated Ringers 1,000 ML 15 ML IV (11:44)
--- NOTE | 2022-08-25 12:05 | DCINST_ITS ---
Discharge Instructions Diet Discharge Diet: No restrictions Activity Discharge Activity: - (May ambulate to right foot with assistance of surgical shoe) Weight Bearing Status: Partial weight bearing (Ambulate to right foot with surgical shoe with weight towards heel) Keep extremity elevated above heart level: Right Leg (Elevate right lower extremity at all times of rest for postoperative edema control) Dressing / Incision Call your doctor if you observe: Fever of 101 or Higher, Shortness of breath, Chest pain, Calf discomfort and Uncontrolled pain Change Dressing in: do not change dressing Remove Dressing in: leave in place till F/U (Do not change dressing. Physician will change dressing at first postop appointment) Cleanse incision/area with: Do not get Incision Wet and Keep Dressing Clean & Dry (Keep dressings clean, dry, and intact to the right foot) Follow Up Care Please Follow Up With: Jose Rhodes DPM When: Patient has first postoperative appointment next week in office Test Results: Test results from this visit will be discussed in further detail at your follow- up appointment, if applicable. Discharge Plan Admission Attending Provider: Jose Rhodes Primary Care Provider: Shireen Almazan Consulting Providers: Johnna Peterson Discharge Orders/Prescriptions Prescriptions: New oxycodone-acetaminophen 5-325 mg tablet 1 tab PO Q6H PRN (Reason: pain) 7 Days Qty: 28 0RF No Action testosterone cypionate [Depo-Testosterone] 200 mg/mL oil 200 mg IM Q3W Qty: 2 5RF (DME) Easy Touch SheathLock Syrg-Ndl 3 mL 22 gauge x 1 1/2 syringe See Rx Instructions .ROUTE .MEDSUPPLY Qty: 10 1RF Rx Instructions: As directed Referrals / Follow Up: Shireen Almazan DO [Primary Care Provider] - Disposition Disposition (needs filled in before D/C Order can be placed): Home, Self Care
[2022-08-25] MEDS: Cefazolin 2 GM in 0.9% Normal Saline 100 ML IV (12:35)
[2022-08-25] MEDS: Bupivacaine Mpf 0.5% 30 ML VIAL (13:00)
[2022-08-25 13:36] VITALS: BP 106/57; BP 116/71; PULSE 41; RESP 16; TEMP 36.4; O2SAT 96
[2022-08-25 13:46] VITALS: BP 109/62; BP 116/71; PULSE 50; RESP 16; O2SAT 100
--- NOTE | 2022-08-25 13:46 | OP.PCM_ITS ---
Problems Associated Problem List Diagnoses (1) Chronic pain of toe of right foot: (2) Mass of skin of toe of right foot: (3) Mass of soft tissue of foot: Report of Operation Date of Procedure: 08/25/22 Pre-Operative Diagnosis: 1. Soft tissue mass fourth digit right foot 2. Pain fourth digit right foot Post-Operative Diagnosis: 1. Soft tissue mass fourth digit right foot 2. Pain fourth digit right foot Surgery/Procedure Performed:: Excision of soft tissue mass fourth digit right foot Description of Surgical Findings:: See operative note for findings Surgeon: Jose Rhodes physicist acoustics: Janeen Bojorquez DPM PGY-1 Type of Anesthesia: Local (6cc 0.5% Marcaine plain) and MAC Specimen's removed: Soft tissue mass fourth digit right foot Drains: None Estimated Blood Loss (mL): < 2 mL Description of Procedure: HPI/indication: Patient is a 37-year-old male who presented to the office with complaint of soft tissue mass of the fourth digit of the right foot. He states the fourth toe is painful when wearing socks, rubbing in shoes, or if he bumps the toe against something. States that if it gets lifted away from the toe or he bumps it hard enough the area will bleed. He stated that the mass had been there for roughly 1 year. On examination soft tissue mass is noted to be flesh- colored tone, with a blanchable appearance, soft, nontender to direct palpation, with a definable stock that is well attached to the digit. Soft tissue mass measured 0.5 cm x 0.7 cm. Radiographic imaging was obtained demonstrating soft tissue mass of the distal digit with no underlying osseous defects. Discussed with patient that lesion did not qualify for punch or shave biopsy and it would be best to remove the soft tissue mass by excision to be sent to pathology for analysis. He was agreeable to this plan. He stated I am not sure what it is but it does hurt at times and bleeds, so I would like it to be gone. Discussed his fourth digit soft tissue mass and pain associated with the digit and the need for excision in detail. Patient wishes to proceed forward with the surgical intervention for excision of the soft tissue mass of the fourth digit of the right foot. Emilio the procedure in great detail. Discussed all possible benefits versus the risks and potential complications in detail. Advised the patient the risks include but are not limited to the following: Pain, continued pain, complex regional pain syndrome, deformity, continued deformity, recurrence, overcorrection, under correction, numbness/neuritis, swelling, scarring, poor cosmetic result, bleeding, the need for further surgery/procedures, nonhealing/delayed healing, dehiscence, infection, blood clots, allergic reaction, transfer lesion(s), loss of function, weakness, shoe gear problems, inability to walk, inability to wear shoes, floating toe, contracted toe, deviated toe, stroke, heart attack, addiction to pain medication, loss of limb, loss of life. Patient expressed understanding and agreement and was able to repeat these back. The typical postoperative course was reviewed with the patient. Patient expressed understanding and agreement. No guarantees or promises were made. All questions were answered to patient satisfaction. He underwent clearance by his PCP. Surgical consent was signed and obtained freely. All diagnostic data was reviewed prior to surgery. The operative limb was signed prior to entering the OR. He was scheduled to undergo excision of soft tissue mass of the fourth digit right foot at [facility] on 08/25/2022. Procedure: Under mild sedation patient was brought into the operating placed on the table in supine position. Following induction of IV anesthetic a tourniquet was placed about the patient's right ankle. Next the foot was scrubbed, prepped, and draped in the usual aseptic manner. At this time a local anesthetic block was performed about the proximal phalanx of the fourth digit of the right foot consisting of 6 cc 0.5% Marcaine plain. The foot was elevated and the pneumatic ankle tourniquet was inflated to 250 mmHg. At this time attention was directed to the distal lateral aspect of the fourth digit tuft of the right foot where a soft tissue mass was present. A 3-1 elliptical incision was made encompassing the soft tissue mass from lateral to medial utilizing a #15 blade. The incision was deepened utilizing sharp and blunt dissection to the subcutaneous layer. During dissection care was taken to observe for any deeper soft tissue involvement from the soft tissue mass, which none was determined. The soft tissue mass was noted to extend into the dermis but not penetrate the subcutaneous layer. A full-thickness dissection was performed removing the soft tissue mass and this was passed to the operative table in toto and cultured to be sent to pathology for analysis. The surrounding soft tissue structures were noted to have no stalk, or capsule, or extension of the soft tissue mass. The site was then flushed with copious amounts of normal sterile saline. The subcutaneous tissue was then closed utilizing a 4-0 Monocryl. The skin was then reapproximated utilizing a 4-0 Prolene in simple interrupted fashion. At this time the pneumatic ankle tourniquet was deflated and a prompt hyperemic response was noted to the digits of the right foot. The site was then dressed with Betadine soaked Adaptic, 4 x 4 fluff, 4 x 4 gauze, Kerlix, and an 4 inch Sanjeev wrap rolled onto the right foot. The patient tolerated the anesthesia and procedure well and was transported the PACU with vital signs stable and vascular status intact to the right foot. He was instructed to keep the dressings clean, dry, and intact to the right foot. He is permitted to bear weight to the heel utilizing a surgical shoe. He will elevate right foot at all times of rest to aid in postoperative edema control. Discussed his postoperative discharge instructions with family. He will follow- up in office next week for first postoperative visit. Grafts/Implants Used: None Complications None Admit VTE Documentation VTE Present on Admission: No VTE Mechan Device Prophylaxis: SCD's VTE Pharm Prophylaxis ordered?: No Reason prophylaxis not ordered:: Procedure Not Indicated
[2022-08-25 13:55] VITALS: BP 112/80; BP 116/71; PULSE 43; RESP 16; O2SAT 99
[2022-08-25 13:58] VITALS: BP 116/71; BP 117/77; PULSE 46; RESP 16; TEMP 36.1; O2SAT 99
[2022-08-25 14:35] VITALS: BP 116/71
== END 2022-08-25 14:36 | disposition home or self-care (01) ==
LOC: SDC 11:10 → AC 11:11
PROVIDERS: Referring Provider Student in an Organized Health Care Education/Training Program; Visit Provider Student in an Organized Health Care Education/Training Program
PROC: (CPT 11421; principal; 2022-08-25 12:50)
DX: R22.41 Localized swelling, mass and lump, right lower limb (principal); M79.674 Pain in right toe(s); M79.671 Pain in right foot; G89.29 Other chronic pain; F17.200 Nicotine dependence, unspecified, uncomplicated
CPT/HCPCS: 11421; 00400; 36415; 71046; 80053; 85025; 88305; J7120; J2405

== ENCOUNTER 2022-11-22 11:41 | Emergency (ER) | payer MEDICAID, SELFPAY ==
[2022-11-22 11:42] VITALS: BP 133/78; PULSE 72; RESP 14; TEMP 36.1; O2SAT 100; BMI 21.4
--- NOTE | 2022-11-22 11:52 | EX.ED.UPPERE ---
HPI History of Present Illness Chief Complaint: Laceration Informant: patient Narrative Narrative: [id number] presents right middle finger laceration 20 minutes prior to arrival. Reaching into his engine work on his car when he got cut. Tetanus unknown. Bleeding controlled. No anticoagulants. No paresthesias. No loss of function. Tetanus Immunization: Unknown [facility] Medical History Klinefelter syndrome Lesion of skin of foot Male hypogonadism Marijuana use Smoker Wears dentures Wears glasses Yeast infection of the skin Home Medications syringe with needle, safety 3 mL 22 gauge x 1 1/2 (Easy Touch SheathLock Syringe with Needle) #10 ea 01/31/21 [Rx Last Taken Unknown] testosterone cypionate 200 mg/mL intramuscular oil (Depo-Testosterone) 200 mg IM Q3W #2 mL 06/15/22 [Rx Last Taken Unknown] oxycodone-acetaminophen 5 mg-325 mg tablet 1 tab PO Q6H PRN pain 7 days #28 tabs 08/25/22 [Rx Last Taken Unknown] Allergy/AdvReac Type Severity Reaction Status Date / Time shellfish derived Allergy Severe Unknown Verified 11/22/22 11:43 cyclobenzaprine Allergy Mild ITCHY Verified 11/22/22 11:43 ciprofloxacin [From Cipro] AdvReac Severe Rash Verified 11/22/22 11:43 ciprofloxacin HCl AdvReac Severe Rash Verified 11/22/22 11:43 [From Cipro] sulfamethoxazole AdvReac Intermediate Itching Verified 11/22/22 11:43 [From Bactrim] trimethoprim [From Bactrim] AdvReac Intermediate Itching Verified 11/22/22 11:43 Family History Other No pertinent family history Surgical History History of right knee surgery Social History Smoking Status: Current every day smoker tobacco type: cigarettes alcohol intake: never ROS ROS ED Constitutional Constitutional ED: Denies chills, fever(s) or sweats Eyes Eyes: Denies change in vision ENT ENT ED: Denies dysphagia or sore throat Cardiovascular Cardiovascular: Denies chest pain, leg edema, palpitations or racing heartbeat Respiratory/Chest Respiratory/Chest: Denies cough, dyspnea or dyspnea on exertion Gastrointestinal Gastrointestinal: Denies abdominal pain, diarrhea, nausea or vomiting Genitourinary Genitourinary ED: Denies dysuria, hematuria or urinary frequency Musculoskeletal Musculoskeletal: Denies back pain, extremity pain or neck pain Integumentary Reports wounds; Denies rash Neurologic Neurologic: Denies headache(s), paresthesias or weakness EXAM Physical Exam Const Vital Signs: 11/22/22 11:42 Temperature 97.0 F L Temperature Source Temporal Pulse Rate 72 Respiratory Rate 14 Blood Pressure 133/78 H Blood Pressure Mean 96 Pulse Ox 100 Oxygen Delivery Method Room Air Positive well nourished and well developed General Appearance ED: well developed and NAD HEENT Reports moist mucous membranes normocephalic and atraumatic Eyes PERRL, EOMs intact bilaterally and conjunctivae normal General Eye ED: Yes normal appearance of both eyes Neck no lymphadenopathy and supple General: Negative for tenderness Chest Wall Chest: Negative for tenderness Resp normal respiratory effort and normal air movement Effort and Inspection: symmetric chest movement; Negative for respiratory distress Cardio regular rate, regular rhythm and no murmurs Peripheral Pulses: pulses 2+ throughout GI normal to inspection, nondistended, normoactive bowel sounds and non-tender Palpation: Negative for guarding or rebound tenderness present Back/Spine no CVA tenderness and no thoracic nor lumbar tenderness Extremity Extremity Narrative: Right upper extremity: Middle finger: 2.5 cm horizontal laceration across the middle phalanx, subcu exposure no active bleeding. Full range of motion of the PIP and DIP joints against resistance. No visualized tendon exposure. Distal sensation intact cap refill less than 3 seconds. General Extremety ED: Negative for edema or tenderness General Extremity: Negative for edema Neuro oriented x3 and no sensory deficits noted Sensorium / Orientation: awake and alert Skin no rashes or lesions noted and no wounds MDM MDM MDM Narrative Medical decision making narrative: Interventions / MDM: Differential diagnosis: Finger laceration Diagnosis considered but do not suspect: Tendon injury however clinical no signs of this. My EKG interpretation: N/A Imaging independently reviewed and interpreted by myself: N/A External documents reviewed: N/A Test considered but not ordered:N/A ED course: Patient right middle finger laceration. Full range of motion of the DIP and PIP tested pre and post analgesia. Laceration repaired using total of 3 sutures. Splint provided for mobilizing to help with healing. Wound care discussed. Outpatient follow-up with PCP for suture removal. All questions were answered. Tetanus updated prior to discharge. Procedure note: Laceration repair. Verbal consent. Normal sterile conditions. 1 cc lidocaine 1% used for local analgesia. Wound was copiously flushed with normal saline. Evaluation hemostats probing, no tendon exposure. Additional flushing performed. Wound was closed using a total of 3, 5-0 nylon simple interrupted sutures. Close approximation performed. Dressing placed by myself after antibiotic ointment was placed. AlumaFoam splint use for mobilization. Patient Toller procedure well. Re-evaluation: stable Disposition discussed with patient/family/significant other: Patient Case discussed with consulting clinician: N/A This note was generated with [employer] dictation software. It may contain incorrect words, spelling, and punctuation that were not noted in checking the note before signing. Discharge Plan Triage Chief Complaint: Laceration ED Provider: David Abreu Dx/Rx/DC Orders Clinical Impression: Tetanus toxoid vaccination administered at current visit, Laceration of right middle finger Instructions: Tdap Vaccine, ED Laceration, Hand: All Closures Prescriptions: No Action testosterone cypionate [Depo-Testosterone] 200 mg/mL oil 200 mg IM Q3W Qty: 2 5RF oxycodone-acetaminophen 5-325 mg tablet 1 tab PO Q6H PRN (Reason: pain) 7 Days Qty: 28 0RF (DME) Easy Touch SheathLock Syrg-Ndl 3 mL 22 gauge x 1 1/2 syringe See Rx Instructions .ROUTE .MEDSUPPLY Qty: 10 1RF Rx Instructions: As directed Primary Care Provider: Shireen Almazan Referrals: Shireen Almazan, [Primary Care Provider] - 10-14 Days suture removal Activity Restrictions/Additional Instructions: Total of 3 sutures placed. Wound care was discussed. Use splint or dimitrios tape fingers. Follow-up your doctor in 10 to 14 days for suture removal. Disposition Disposition: Home, Self Care
[2022-11-22] MEDS: Lidocaine 1% (20 ml mdv) 20 ML Vial INFILT (12:00)
[2022-11-22] MEDS: Diphth,Pertuss(Acell),Tet Vac 0.5 ML Vial IM (12:01)
== END 2022-11-22 12:32 | disposition home or self-care (01) ==
PROVIDERS: Emergency Provider Emergency Medicine; Visit Provider Emergency Medicine
DX: S61.212A Laceration without foreign body of right middle finger without damage to nail, initial encounter (principal); Z23 Encounter for immunization; W26.8XXA Contact with other sharp object(s), not elsewhere classified, initial encounter; F17.210 Nicotine dependence, cigarettes, uncomplicated
CPT/HCPCS: 12001; 90715; 99283

== ENCOUNTER → 2023-01-11 | Outpatient (CLI) | payer MEDICAID, SELFPAY ==
[2023-01-11 16:49] LABS: Absolute Lymphocyte Count 1.45 X10^3/uL (0.83-4.51); Absolute Neutrophil Count 4.6 X10^3/uL (2.0-7.7); Basophil# 0.03 X10^3/uL; Basophil% 0.5 % (0-1); Eosinophil# 0.11 X10^3/uL; Eosinophils% 1.7 % (0-5); Hemoglobin 14.6 g/dL (13.0-16.5); Lymphocyte # 1.45 X10^3/ul (0.83-4.51); Lymphocyte % 22.2 % (19-41); Mean Corpuscular Hgb 30.9 pg (27.0-32.0); Mean Corpuscular Volume 90.9 fL (80-94); Mean Platelet Vol. 9.1 fl (6.2-12.0); Monocyte# 0.27 X10^3/uL; Monocyte% 4.1 % (0-10); NRBC Flagged by Analyzer 0 % (0-5); Neutrophil # 4.64 X10^3/uL (2.7-7.7); Neutrophil % 71.2 % (47-70); Platelet Count 209 K/mm3 (150-450); RBC Distribution Width CV 13.7 % (11.6-14.6); RBC Distribution Width SD 46.2 fl (35.1-43.9); Red Blood Count 4.73 M/mm3 (4.6-6.2); White Blood Count 6.5 K/mm3 (4.4-11.0)
[2023-01-17 12:09] LABS: Testosterone, % Free 1.91 % (1.50-4.20); Testosterone, Free 7.01 ng/dL (5.00-21.00); Testosterone, Total 367 ng/dL (264-916)
== END | disposition home or self-care (01) ==
LOC: LAB 15:38
PROVIDERS: Referring Provider Nurse Practitioner Family; Visit Provider Nurse Practitioner Family
DX: E29.1 Testicular hypofunction (principal)
CPT/HCPCS: 36415; 84402; 84403; 85025

== ENCOUNTER 2024-08-19 11:58 | Emergency (ER) | payer SELFPAY ==
[2024-08-19 11:58] VITALS: BP 146/81; PULSE 73; RESP 14; TEMP 36.3; O2SAT 98; BMI 23.1
--- NOTE | 2024-08-19 12:17 | EX.ED.GUMALE ---
HPI History of Present Illness Chief Complaint: Male Pain/Injury [facility] Medical History Klinefelter syndrome Lesion of skin of foot Male hypogonadism Marijuana use Smoker Wears dentures Wears glasses Yeast infection of the skin Home Medications ?Medication ?Instructions ?Recorded ?Last Taken ?Type NK 08/19/24 Unknown History Allergy/AdvReac Type Severity Reaction Status Date / Time shellfish derived Allergy Severe Unknown Verified 08/19/24 12:22 cyclobenzaprine Allergy Mild ITCHY Verified 08/19/24 12:22 ciprofloxacin (From Cipro) AdvReac Severe Rash Verified 08/19/24 12:22 ciprofloxacin HCl (From AdvReac Severe Rash Verified 08/19/24 12:22 Cipro) sulfamethoxazole (From AdvReac Intermediate Itching Verified 08/19/24 12:22 Bactrim) trimethoprim (From Bactrim) AdvReac Intermediate Itching Verified 08/19/24 12:22 Family History Other No pertinent family history Surgical History History of right knee surgery Social History Smoking Status: Current every day smoker tobacco type: cigarettes alcohol intake: never EXAM Physical Exam Const Vital Signs: 08/19/24 11:58 Temperature 97.3 F L Temperature Source Temporal Pulse Rate 73 Respiratory Rate 14 Blood Pressure 146/81 H Blood Pressure Mean 102 Pulse Ox 98 Oxygen Delivery Method Room Air [facility] [place] Medical decision making narrative: HISTORY OF PRESENT ILLNESS: Chief complaint: Left testicular pain, abdominal pain 39-year-old male history of Klinefelter syndrome presents with left testicular pain and abdominal pain states I thought I had a hernia but now I think it is my left nut. The patient further states he noted a cyst or lump on his left testicle. Notes pain radiation left testicle into the groin. Denies vomiting. Denies fever. Notes sexually active 1 partner but 6 months ago. Not concerned about STDs. REVIEW OF SYSTEMS: Pertinent positives: Testicular pain, lower abdominal pain Pertinent negatives: Dysuria, hematuria PHYSICAL EXAM: Nursing triage notes reviewed, Vital signs reviewed Constitutional: please see mdm HENT: MMM Eyes: Pupils equal round and reactive to light, Extraocular muscles intact Neck: No stridor, no JVD, full neck ROM Lungs: Clear to auscultation, No wheezing or rales. No increased work of breathing, no conversational dyspnea, no accessory muscle use, no nasal flaring. No respiratory distress noted Heart: Regular rate and rhythm, No murmurs, No rubs and No gallops, 2+ distal pulses (radial, femoral, posterior tibial) in all extremities Abdomen: Soft, there is no tenderness, rigidity, rebound or guarding, no obvious peritoneal signs, no palpable pulsatile abdominal masses, no auscultated abdominal bruit : No CVAT Extremities: No edema Neuro: No new focal neurological deficits, cranial nerves II through XII intact, 5/5 strength in all present extremities. Intact sensation to light touch in all present extremities, 2+ reflexes bilateral patella tendons. Skin: No rash or lesions noted MEDICAL DECISION MAKING: Chief Complaint: please see [facility] External records reviewed: Reviewed prior imaging studies: No recent events imaging of the abdomen or testicles Factors affecting care: as per [facility] Social determinants of health: none History obtained from others: none Consults: Urology (Dr. Goodman) -discussed ultrasound read. Clinically I doubt the patient has testicular torsion because he does not have acute severe pain, he appears comfortable and clinically my exam is not consistent with torsion (normal testicular lie, intact cremasterc reflex, no obvious scrotal edema, in addition to that the patient's scrotal ultrasound showed evidence of a varicocele which is a more likely diagnosis in this clinical context). Dr. Goodman noted he could see the patient in his office this week. [facility] Narrative: The patient was initially hemodynamically stable, afebrile and nontoxic-appearing. Exam with left testicular TTP but normal lie, intact cremasteric reflex. No palpable abdominal hernias. Otherwise abdomen soft and nontender with no obvious peritoneal signs I considered the following differential diagnosis: Orchitis, epididymitis, testicular mass, hernia, bowel obstruction or perforation I obtained a testicular ultrasound, urinalysis. I initially treated with Oral Zofran and ibuprofen. ALL IMAGES (IF OBTAINED) HAVE BEEN PERSONALLY REVIEWED AND INTERPRETED BY MYSELF. Urinalysis shows no evidence of urinary inflammation suggestive of UTI Ultrasound shows no evidence of obvious testicular torsion. Possible etiology could be varicocele. Clinically not consistent with torsion. Discussed with urology who agreed. Patient is appropriate for discharge home with Tylenol ibuprofen instructions and close urology follow-up. Strict return precautions were discussed. The patient and/or family, caregivers express understanding. The patient and/or family, caregivers agrees with the plan. Shared decision making: I will have a discussion with the patient and or visitors regarding risk/benefits of further testing or admission. They will be made aware of of the risk/benefits inherent in this decision they will be given the opportunity to voice understanding. Total critical care time today provided was at least 0 minutes. This excludes separately billable procedures. Critical care time (if documented) is secondary to the patient having high probability of clinically significant/life threatening deterioration in the patient's condition which required my urgent intervention. Impression: 1. Left testicular pain 2. Varicocele Dispo: Discharge This note was generated with [employer] dictation software. It may contain incorrect words, spelling, and punctuation that were not noted in review of the chart prior to signing. Lab Data Labs: Laboratory Results - last 24 hr 08/19/24 12:55 Urine Color Yellow Urine Clarity Clear Urine pH 6.0 Ur Specific [place] 1.015 Urine Protein 15 H Urine Glucose (UA) Normal Urine Ketones Negative Urine Occult Blood Negative Urine Nitrite Negative Urine Bilirubin Negative Urine Urobilinogen Normal Ur Leukocyte Esterase Negative Urine RBC 0 SEEN Urine WBC 0 SEEN Ur Squamous Epith Cells 0-5 SEEN Urine Bacteria 0 SEEN Urine Mucus 0 SEEN Radiography Diagnostic Testing: Clinical Impression(s) from Imaging Studies Testicular Ultrasound 08/19/24 12:25 IMPRESSION: 1. Venous waveforms not confidently identified in the LEFT testicle however arterial waveforms are preserved and the parenchymal appearance remains homogeneous. Given this, partial torsion cannot be excluded. Correlate with clinical evaluation and consider a follow-up exam with optimized spectral Doppler parameters. 2. Small varicocele on the LEFT reportedly corresponds to the patient's site of pain. 3. Mild scrotal wall thickening to 4-5 mm. Correlate for etiologies for tissue edema such as an infectious/inflammatory process. 4. Bilateral testicular atrophy of uncertain significance. Correlate with medical history. 5. Additional description as above. Reading Location: [id number] Discharge Plan Triage Chief Complaint: Male Pain/Injury ED Provider: Eugenio Valentin Dx/Rx/DC Orders Clinical Impression: Left varicocele Instructions: ED Varicocele Prescriptions: No Action NK Primary Care Provider: Care Physician,Viki Primary Referrals: Jerrod Goodman MD [Med Staff - Active Staff] - Activity Restrictions/Additional Instructions: Thank you for trusting us with your care today! Your ultrasound is consistent with a varicocele which is venous swelling which can present with pain. This is not serious. This requires below medications and prompt urology follow-up. Please take Tylenol (2 pills, 650 mg), ibuprofen (2 pills, 400 mg) every 6 hours as needed for pain and fever control. Please return to the emergency department if your symptoms change or worsen. Please follow with Urology (Dr. Goodman) for further outpatient evaluation and management. Print Language: Vietnamese Disposition Disposition: Home, Self Care
--- NOTE | 2024-08-19 12:25 | US_ITS ---
PROCEDURE: TESTICULAR WITH ARTERIAL FLOW, 08/19/2024 REASON FOR EXAM: LEFT TESTICULAR PAIN TECHNIQUE: Grayscale, color Doppler, and spectral Doppler imaging of the scrotum and contents was performed. COMPARISON: None FINDINGS: Note that a single image containing both testicles with color Doppler for the purposes of establishing symmetric flow was not obtained. RIGHT testicle: 2.8 x 1.5 x 1.1 cm (estimated volume 2.5 mL). Appearance: Homogeneous echotexture. No visualized mass. Right epididymis: Unremarkable. Epididymal head measures 7 x 7 x 6 mm. Vascular flow: Normal low resistance arterial and probably faint venous waveforms. Hydrocele: None visualized. LEFT testicle: 2.6 x 1.9 x 1.2 cm (estimated volume 3.0 mL).. Appearance: Homogeneous echotexture. No visualized mass. Right epididymis: Unremarkable. Epididymal head measures 10 x 8 x 5 mm. Vascular flow: Normal low resistance arterial waveforms. Venous waveforms not confidently identified. Hydrocele: None visualized. Other: Small varicocele is noted in the area of reported pain on the LEFT, notably increasing with Valsalva. Vessels measure up to 3 mm. Scrotal wall: Mild scrotal wall thickening to 4-5 mm. US/Testicular with Arterial Flow IMPRESSION: 1. Venous waveforms not confidently identified in the LEFT testicle however art erial waveforms are preserved and the parenchymal appearance remains homogeneous. Given this, partial torsion cannot be excluded . Correlate with clinical evaluation and consider a follow-up exam with optimized spectral Doppler parameters. 2. Small varicocele on the LEFT reportedly corresponds to the patient's site of pain. 3. Mild scrotal wall thickening to 4-5 mm. Correlate for etiologies for tissue edema such as an infectious/inflammatory process. 4. Bilateral testicular atrophy of uncertain significance. Correlate with medi joanna history. 5. Additional description as above. Reading Location: [id number]
[2024-08-19] MEDS: Acetaminophen 325 MG Tablet 650 MG PO (12:41)
[2024-08-19] MEDS: Ondansetron ODT 4 MG Tablet PO (12:41)
[2024-08-19] MEDS: Ibuprofen 200 MG Tablet 400 MG PO (12:41)
[2024-08-19 13:15] LABS: Bacteria 0 SEEN /hpf (None Seen); Mucous, Urine 0 SEEN /hpf (<or=2+); Red Blood Cells-Urine 0 SEEN /hpf (0-5); White Blood Cells 0 SEEN /hpf (0-5)
[2024-08-19 13:18] LABS: Color, Urine Yellow (Yellow); Glucose, Dipstick Normal (Normal); Ketone-Dipstick Negative (Negative); Leukocyte Esterase-Dipstick Negative /ul (Negative); Nitrite-Dipstick Negative (Negative); Occult Blood-Urine Negative /ul (Negative); Protein-Dipstick 15 mg/dl (Negative); Specific Gravity, Urine 1.015 (1.002-1.030); Urine Bilirubin Dipstick Negative (Negative); Urine Clarity Clear (Clear); Urine Urobilinogen Normal (Normal)
[2024-08-19 13:24] LABS: Squamous Epithelial Cells - UA 0-5 SEEN /hpf (0-5)
--- NOTE | 2024-08-19 13:49 | CM.ED ---
Social work Reason for referral: no PCP/lack of insurance Referral source: case find This SW identified patient's lack of PCP and insurance and need for resources. This SW entered patient's room, introducing self and role at [facility]. Patient welcomed visit and confirmed lack of a PCP and insurance. SW provided resources of [facility] Provider Directory and Angela Springer information, as well as a resource explaining how to apply for Medicaid. Patient denied further needs at this time. Katharine Bonilla, [employer], [employer]ING OFFICER
[2024-08-19 13:55] VITALS: BP 139/81; PULSE 76; RESP 14; TEMP -12.7; TEMP 9; O2SAT 100
== END 2024-08-19 13:56 | disposition home or self-care (01) ==
PROVIDERS: Emergency Provider Emergency Medicine; Visit Provider Emergency Medicine
DX: I86.1 Scrotal varices (principal); F17.210 Nicotine dependence, cigarettes, uncomplicated
CPT/HCPCS: 76870; 81001; 93976; 99282

== ENCOUNTER 2024-09-09 11:22 | Emergency (ER) | payer SELFPAY ==
[2024-09-09 11:24] VITALS: BP 148/94; PULSE 70; RESP 16; TEMP 36.7; O2SAT 100; BMI 22.8
--- NOTE | 2024-09-09 11:39 | ED.VIS.LOWEX ---
HPI History of Present Illness Chief Complaint: Lower Extremity Injury Informant: patient Narrative Narrative: 39-year-old male accidentally dropped a wheel on his left foot injuring his great toe. No other injuries. No bleeding. He states this is non-work related. [facility] Medical History Wears dentures Wears glasses Marijuana use Smoker Lesion of skin of foot Yeast infection of the skin Klinefelter syndrome Male hypogonadism Home Medications ?Medication ?Instructions ?Recorded ?Last Taken ?Type NK 08/19/24 Unknown History Allergy/AdvReac Type Severity Reaction Status Date / Time shellfish derived Allergy Severe Unknown Verified 09/09/24 11:26 cyclobenzaprine Allergy Mild ITCHY Verified 09/09/24 11:26 ciprofloxacin (From Cipro) AdvReac Severe Rash Verified 09/09/24 11:26 ciprofloxacin HCl (From AdvReac Severe Rash Verified 09/09/24 11:26 Cipro) sulfamethoxazole (From AdvReac Intermediate Itching Verified 09/09/24 11:26 Bactrim) trimethoprim (From Bactrim) AdvReac Intermediate Itching Verified 09/09/24 11:26 Family History Other No pertinent family history Surgical History History of right knee surgery Social History (Updated 09/09/24 @ 12:03 by Kierra Shay) housing: house Smoking Status: Current every day smoker tobacco type: cigarettes alcohol intake: never ROS ROS ED Constitutional Constitutional ED: Denies chills or fever(s) Musculoskeletal Musculoskeletal: Reports extremity pain; Denies neck pain Integumentary Denies Abrasions, rash or wounds Neurologic Neurologic: Denies paresthesias or weakness EXAM Physical Exam Const Vital Signs: 09/09/24 11:24 Temperature 98.1 F Temperature Source Oral Pulse Rate 70 Respiratory Rate 16 Blood Pressure 148/94 H Blood Pressure Mean 112 Pulse Ox 100 Oxygen Delivery Method Room Air Positive well nourished and well developed General Appearance ED: well developed and NAD Neck full ROM and supple Back/Spine normal ROM and normal to inspection Extremity Extremity Narrative: Ecchymosis/purpura as well as tenderness to the entire left great toe. There is no subungual hematoma. Neurovascular intact distally although he has some decreased sensation. Limited range of motion due to pain. There is no tenderness at the first metatarsal or elsewhere in the foot. No wounds or bleeding. Neuro oriented x3, no focal motor deficits and no sensory deficits noted Sensorium / Orientation: alert Psych mental status grossly normal and thought process normal Skin no wounds Rashes: no rashes MDM MDM MDM Narrative Medical decision making narrative: Three-view x-ray series of the left great toe on my interpretation shows comminuted fracture that may involve the joint space. Will be given a postop shoe, something for pain, work restrictions, and referral to podiatry. Radiography Diagnostic Testing: Clinical Impression(s) from Imaging Studies Toe X-Ray 09/09/24 11:45 IMPRESSION: Nondisplaced comminuted fracture of the distal phalanx of the great toe with overlying soft tissue swelling. Reading Location: [place] [id number] Discharge Plan Triage Chief Complaint: Lower Extremity Injury ED Provider: Fuad Santos Dx/Rx/DC Orders Clinical Impression: Closed fracture of distal phalanx of left great toe Instructions: ED Fracture, Toe, Closed Prescriptions: No Action NK Stand Alone Forms: Work Status Form Primary Care Provider: Care Physician,No Primary Referrals: Christian Reynoso DPM [Med Staff - Active Staff] - As soon as possible Print Language: Armenian Disposition Disposition: Home, Self Care
--- NOTE | 2024-09-09 11:45 | RAD_ITS ---
PROCEDURE: TOE(S) MIN 2 VIEWS 09/09/2024 REASON FOR EXAM: Injury of the left great toe. TECHNIQUE: 3 view(s) of the toes COMPARISON: None FINDINGS: Nondisplaced comminuted fracture of the distal phalanx of the great toe. Normal alignment. Soft tissue swelling. RAD/Toe(s) Min 2 Views IMPRESSION: Nondisplaced comminuted fracture of the distal phalanx of the great toe with ov erlying soft tissue swelling. Reading Location: [facility]
[2024-09-09] MEDS: Naproxen 500 MG Tablet PO (12:32)
[2024-09-09 12:33] VITALS: BP 132/72; PULSE 70; RESP 16; TEMP 36.7; O2SAT 100
== END 2024-09-09 12:34 | disposition home or self-care (01) ==
PROVIDERS: Emergency Provider Emergency Medicine; Visit Provider Emergency Medicine
DX: S92.425A Nondisplaced fracture of distal phalanx of left great toe, initial encounter for closed fracture (principal); F17.210 Nicotine dependence, cigarettes, uncomplicated; W20.8XXA Other cause of strike by thrown, projected or falling object, initial encounter
CPT/HCPCS: 73660; 99283

== ENCOUNTER 2024-09-09 23:05 | Emergency (ER) | payer SELFPAY ==
[2024-09-09 23:06] VITALS: BP 137/92; PULSE 70; RESP 18; TEMP 36; O2SAT 100; BMI 23.2
--- NOTE | 2024-09-09 23:42 | ED.VIS.LOWEX ---
HPI History of Present Illness Chief Complaint: Lower Extremity Injury Informant: patient Narrative Narrative: Patient is a 39-year-old male with history of Klinefelter syndrome who sustained a fracture to his left great toe today presenting for pain control. Patient dropped a tire wheel from a semitruck onto his foot today. He had immediate pain. He came and had an x-ray which showed a nondisplaced comminuted fracture of the distal phalanx of the great toe. He states he is wearing his postop shoe, elevating and taking Advil but is not have been able to get any relief of his pain. States the pain is worsening. He states he feels like his foot is going to split in half. Denies any associated numbness. No other complaints or concerns reported at this time. No new injury reported [facility] Medical History Wears dentures Wears glasses Marijuana use Smoker Lesion of skin of foot Yeast infection of the skin Klinefelter syndrome Male hypogonadism Home Medications ?Medication ?Instructions ?Recorded ?Last Taken ?Type hydrocodone-acetaminophen 5-325mg 1 tab PO Q6H PRN PRN Pain 3 days 09/09/24 Unknown Rx 5mg-325mg #12 TABLETS Allergy/AdvReac Type Severity Reaction Status Date / Time shellfish derived Allergy Severe Unknown Verified 09/09/24 23:06 cyclobenzaprine Allergy Mild ITCHY Verified 09/09/24 23:06 ciprofloxacin (From Cipro) AdvReac Severe Rash Verified 09/09/24 23:06 ciprofloxacin HCl (From AdvReac Severe Rash Verified 09/09/24 23:06 Cipro) sulfamethoxazole (From AdvReac Intermediate Itching Verified 09/09/24 23:06 Bactrim) trimethoprim (From Bactrim) AdvReac Intermediate Itching Verified 09/09/24 23:06 Family History Other No pertinent family history Surgical History History of right knee surgery Social History housing: house Smoking Status: Current every day smoker tobacco type: cigarettes alcohol intake: never ROS ROS ED Musculoskeletal Musculoskeletal: Reports other Details: Left foot pain Integumentary Reports other Details: Bruising to his left great toe Neurologic Neurologic: Denies paresthesias or weakness Hematologic/Lymphatic Hematologic/Lymphatic: Denies easy bleeding or easy bruising EXAM Physical Exam Const Vital Signs: 09/09/24 23:06 Temperature 96.8 F L Temperature Source Temporal Pulse Rate 70 Respiratory Rate 18 Blood Pressure 137/92 H Blood Pressure Mean 107 Pulse Ox 100 Oxygen Delivery Method Room Air Positive well nourished and well developed General Appearance ED: well developed and NAD Resp normal respiratory effort Cardio regular rate and regular rhythm Cardio Narrative: 2+ DP pulse present Extremity Extremity Narrative: Tenderness to palpation along the left first toe. No subungual hematoma of the toe appreciated. Abdirashid tape in place which has restricted range of motion of the toe Neuro moves all extremities and no sensory deficits noted Sensorium / Orientation: alert Motor Exam: strength 5/5 throughout Psych mental status grossly normal Skin Skin Narrative: Ecchymosis to the anterior aspect of the left great toe. No subungual hematoma appreciated. No bleeding appreciated. MDM MDM MDM Narrative Medical decision making narrative: Patient evaluated for continued left toe pain. He was seen in our ER this morning. An x-ray which did show nondisplaced great toe fracture. Patient does have significant ecchymosis. Compartments are soft and I am not suspicious for compartment syndrome. Vital signs are normal in the emergency room. At this point think this is more of a pain control issue. Do not think he requires repeat imaging or workup. Patient given a dose of [place] for pain control. Is given a short course of this. Given return precautions. Discharged home in stable condition. Will follow-up with podiatry. States he already called and made an appointment Discharge Plan Triage Chief Complaint: Lower Extremity Injury ED Provider: Megan Phipps Dx/Rx/DC Orders Clinical Impression: Closed fracture of distal phalanx of left great toe Instructions: ED Fracture, Toe, Closed Prescriptions: New hydrocodone-acetaminophen 5-325 mg tablet 1 tab PO Q6H PRN PRN (Reason: Pain) 3 Days Qty: 12 0RF Primary Care Provider: Care Physician,No Primary Referrals: Christian Reynoso DPM [Med Staff - Active Staff] - Care Physician,No Primary [Primary Care Provider] - Print Language: [place] Timorese Disposition Disposition: Home, Self Care
[2024-09-09] MEDS: HYDROcodone Bitartrate/Apap 5/325 Tablet PO (23:47)
[2024-09-09 23:54] VITALS: BP 130/71; PULSE 64; RESP 18; TEMP 36.7; O2SAT 97
== END 2024-09-09 23:56 | disposition home or self-care (01) ==
PROVIDERS: Emergency Provider Emergency Medicine; Visit Provider Emergency Medicine
DX: S92.425A Nondisplaced fracture of distal phalanx of left great toe, initial encounter for closed fracture (principal); F17.210 Nicotine dependence, cigarettes, uncomplicated; W20.8XXA Other cause of strike by thrown, projected or falling object, initial encounter; Q98.4 Klinefelter syndrome, unspecified
CPT/HCPCS: 99282

== ENCOUNTER 2025-01-26 10:26 | Emergency (ER) | payer SELFPAY ==
[2025-01-26 10:27] VITALS: BP 145/101; PULSE 95; RESP 16; TEMP 36.8; O2SAT 99; BMI 25.7
== END 2025-01-26 11:30 | disposition left against medical advice (07) ==
LOC: ED 11:51
DX: N50.82 Scrotal pain (principal); Z53.21 Procedure and treatment not carried out due to patient leaving prior to being seen by health care provider

== ENCOUNTER 2025-02-04 08:08 | Emergency (ER) | payer SELFPAY ==
[2025-02-04 08:09] VITALS: BP 124/75; PULSE 64; RESP 16; TEMP 35.9; O2SAT 100; BMI 22.9
--- NOTE | 2025-02-04 08:25 | EDS_ITS ---
HPI History of Present Illness Chief Complaint: Upper Extremity Injury Detail of Chief Complaint: Injury to left hand. Informant: patient Occured/Mechanism Mechanism/Context: Yes blunt trauma Comment: Smashed hand in door this morning Onset/Context/Timing Onset: Today and Hours Context: Sudden Onset Timing: Continuous Quality of Pain: - (States hand and multiple fingers are numb) Location: Left hand, left index, long and ring finger Current Severity: Mild Maximum Severity: Moderate Worsened by: Initial injury Relieved by: Nothing Associated Symptoms Associated Symptoms: Positive for Parasthesia and Loss of Funtion (Difficulty using because of pain and numbness); Negative for Weakness Narrative Narrative: Patient is a 39-year-old [id number] male. He presents with blunt trauma to his left hand. He states it was smashed in the door . Patient complains of numbness of his index, long and ring finger. The worst being his long finger. He states his last tetanus was 3 to 4 years ago. He has a superficial laceration over the dorsal surface of the left long finger. He has no other complaints. Tetanus Immunization: <5 years Prior similar symptoms: No Recent Illness/Hospitalization: No PFSH PFSH Medical History Wears dentures Wears glasses Marijuana use Smoker Lesion of skin of foot Yeast infection of the skin Klinefelter syndrome Male hypogonadism Home Medications ?Medication ?Instructions ?Recorded ?Last Taken ?Type hydrocodone-acetaminophen 5-325mg 1 tab PO Q6H PRN PRN Pain 3 days 09/09/24 Unknown Rx 5mg-325mg #12 TABLETS Allergy/AdvReac Type Severity Reaction Status Date / Time shellfish derived Allergy Severe Unknown Verified 02/04/25 08:09 cyclobenzaprine Allergy Mild ITCHY Verified 02/04/25 08:09 ciprofloxacin (From Cipro) AdvReac Severe Rash Verified 02/04/25 08:09 ciprofloxacin HCl (From AdvReac Severe Rash Verified 02/04/25 08:09 Cipro) sulfamethoxazole (From AdvReac Intermediate Itching Verified 02/04/25 08:09 Bactrim) trimethoprim (From Bactrim) AdvReac Intermediate Itching Verified 02/04/25 08:09 Family History Other No pertinent family history Surgical History History of right knee surgery Social History housing: house Smoking Status: Current every day smoker tobacco type: cigarettes alcohol intake: never ROS ROS ED Constitutional Constitutional ED: Denies chills, fever(s), subjective or sweats Integumentary Reports other Details: Superficial laceration 2 cm dorsum left long finger over the proximal phalange Neurologic Neurologic: Reports paresthesias RUE; Denies weakness Hematologic/Lymphatic Hematologic/Lymphatic: Denies easy bleeding or easy bruising EXAM Physical Exam Const Vital Signs: 02/04/25 08:09 Temperature 96.6 F L Temperature Source Temporal Pulse Rate 64 Respiratory Rate 16 Blood Pressure 124/75 H Blood Pressure Mean 91 Pulse Ox 100 Oxygen Delivery Method Room Air Positive well nourished and well developed Constitutional Narrative: Patient is a very tall thin gentleman with long fingers. General Appearance ED: well developed HEENT normocephalic and atraumatic Eyes PERRL and EOMs intact bilaterally Resp normal respiratory effort Cardio regular rate and regular rhythm Extremity Negative for normal to inspection Extremity Narrative: Superficial abrasion previously-described left long finger. Difficulty flexing the long finger. The flexor digitorum superficialis and flexor digitorum profundus are intact for the index long and ring finger. The extensor intersinus tensor commonness tendon is functionally intact. There is no subungual hematoma noted of his fingers. He states he has no sensation when I palpated his distal, middle and proximal phalanx of the index, long and ring finger. He had no sensation over the 2nd or 3rd MCP joint either. The median, radial and ulnar function are intact. Neuro oriented x3, CN's II-XII intact bilaterally, moves all extremities, no focal motor deficits and no sensory deficits noted Psych mental status grossly normal Skin Skin Narrative: Superficial laceration as previously noted MDM MDM MDM Narrative Medical decision making narrative: Will obtain x-ray to rule out fracture versus contusion. Tetanus is up-to-date. There is no indication for repair of the superficial laceration Radiography Chest X-Ray - ED: Read by ED Physician (Three-view x-ray of the left hand with intent reviewed interpreted by me at 0846. There is no fracture, subluxation dislocation. Is no metal foreign body.) Discharge Plan Triage Chief Complaint: Upper Extremity Injury ED Provider: Paul Morris Dx/Rx/DC Orders Clinical Impression: Contusion of left hand, initial encounter, Neurapraxia, Klinefelter syndrome Instructions: ED Hand Contusion Prescriptions: No Action hydrocodone-acetaminophen 5-325 mg tablet 1 tab PO Q6H PRN PRN (Reason: Pain) 3 Days Qty: 12 0RF Primary Care Provider: Care Physician,No Primary Referrals: [facility], [place] [Outside] - 1 Week if not improving Care Physician,No Primary [Primary Care Provider, Medical] Activity Restrictions/Additional Instructions: 1. Apply ice to your hand 6-8 times a day for the next 3 to 5 days. 2. Recommend taking either ibuprofen or Aleve for your discomfort. If you have ibuprofen 4 tablets every 8 hours for the next 3 to 5 days. If you have Aleve 2 tablets every 12 hours for next 3 to 5 days. Print Language: Gabonese Disposition Disposition: Home, Self Care
--- NOTE | 2025-02-04 08:30 | RAD_ITS ---
PROCEDURE: HAND MIN 3 VIEWS 02/04/2025 REASON FOR EXAM: INJURY/PAIN TECHNIQUE: Procedure Code: SATNAM Modality: DX Procedure: HAND MIN 3 VIEWS Laterality: Left. COMPARISON: None. RAD/Hand Min 3 Views IMPRESSION: No radiopaque foreign body is seen. No fracture or dislocation is seen. If clinical concern persists, short-term follow-up imaging may be obtained to r ule out a currently occult fracture. Reading Location: [id number]
[2025-02-04 09:13] VITALS: BP 122/78; PULSE 66; RESP 12; TEMP 36.6; O2SAT 99
== END 2025-02-04 09:15 | disposition home or self-care (01) ==
PROVIDERS: Emergency Provider Emergency Medicine; Visit Provider Emergency Medicine
DX: S61.213A Laceration without foreign body of left middle finger without damage to nail, initial encounter (principal); S60.222A Contusion of left hand, initial encounter; S64.92XA Injury of unspecified nerve at wrist and hand level of left arm, initial encounter; W23.0XXA Caught, crushed, jammed, or pinched between moving objects, initial encounter; Q98.4 Klinefelter syndrome, unspecified; F17.210 Nicotine dependence, cigarettes, uncomplicated
CPT/HCPCS: 73130; 99282